=== PATIENT | female | born 1935 | race Caucasian/White ===

== ENCOUNTER 2017-12-03 10:53 | Emergency (ER) | payer MEDICARE, OTHER ==
[2017-12-03 11:46] LABS: #Eosinphils 0.1 thou/uL (0.0-0.7); #Lymphocytes 1.8 thou/uL (1.20-3.40); #Monocytes 0.6 thou/uL (0.11-0.59); #Neutrophils 3.5 thou/uL (1.40-6.50); %Basophils 0.6 % (0.0-1.0); %Eosinophils 1.3 % (0.0-10.0); %Lymphocytes 30.9 % (21.0-51.0); %Monocytes 9.3 % (0.0-10.0); Hemoglobin 12.9 g/dL (12.0-16.0); Mean Corpuscular HGB CONC 33.8 g/dL (32.0-36.0); Mean Corpuscular Hemoglobin 32.7 pg (27.0-31.0); Mean Corpuscular Volume 96.7 fL (78.0-98.0); Mean Platelet Volume 6.7 fL (7.4-10.4); Platelet Count 190 thou/uL (130-400); RBC Distribution Width 12.6 % (11.5-14.5); Red Blood Cell (RBC) Count 3.93 mill/uL (4.20-5.40)
[2017-12-03 11:53] LABS: INR-International Normal Ratio 2.7; PTT 46.1 SEC (22.9-36.1); Prothrombin Time 28.7 SEC (12.0-14.7)
[2017-12-03 12:07] LABS: ALT (SGPT) 9 U/L (8-55); AST (SGOT) 16 U/L (5-34); Alkaline Phosphatase 70 U/L (40-150); Anion Gap 14 mmol/L (10-20); BUN (Urea Nitrogen) 21 mg/dL (9.8-20.1); Bilirubin, Total 0.6 mg/dL (0.2-1.2); Calc. Creatinine Clearance 0 mL/min (70-130); Calcium 9.6 mg/dL (7.8-10.44); Carbon Dioxide 25 mmol/L (23-31); Chloride 104 mmol/L (98-107); Estimated GFR-MDRD 45; Globulin 3.3 g/dL (2.4-3.5); Glucose 92 mg/dL (83-110); Potassium 4.7 mmol/L (3.5-5.1); Protein, Total 7.3 g/dL (6.0-8.3); Sodium 138 mmol/L (136-145)
[2017-12-03] MEDS ORDERED: Acetaminophen 500 MG TAB ONE (12:43)
--- NOTE | 2017-12-03 12:45 | CT ---
CT BRAIN WITHOUT CONTRAST: HISTORY: Headache. FINDINGS: Comparison is made with the exam of 04/16/15. Changes of cortical atrophy and chronic small-vessel ischemic disease are again seen. The ventricula r size is appropriate and the basilar cisterns are patent. No evidence of acute infarct, hemorrhage, midline shift, or abnormal extraaxial fluid collection seen. The bony calvarium is intact. The vis ualized paranasal sinuses and mastoid air cells are well aerated. IMPRESSION: No CT evidence of acute intracranial process. POS: [facility]
[2017-12-03 13:59] LABS: Bilirubin Small (Negative); Blood, Urine Large (Negative); Clarity Hazy (Clear); Glucose, Urine (Dipstick) Negative (Negative); Leukocyte Negative (Negative); Nitrite Negative (Negative); Protein, Urine (Dipstick) Trace mg/dL (Neg-Trace); Urobilinogen 0.2 mg/dL (0.2-1.0); pH, Urine 5.5 (5.0-9.0)
[2017-12-03 14:01] LABS: Specific Gravity, Urine 1.026 (1.002-1.036)
[2017-12-03 14:02] LABS: Other Microscopic Description Less than 2 mL rec'd
[2017-12-03 14:03] LABS: Bacteria/HPF None Seen HPF (None Seen); Hyaline Casts/LPF NONE SEEN LPF (0-3 Hyaline); RBC/HPF 21-50 HPF (0-3); Squamous Epithelial 0-3 HPF (0-3); Transitional Epithelial 0-3 HPF (0-3); WBC/HPF 0-3 HPF (0-3)
== END 2017-12-03 14:34 | disposition home or self-care (01) ==
LOC: ERS 10:53
DX: K08.89 Other specified disorders of teeth and supporting structures (principal); I10 Essential (primary) hypertension; I49.9 Cardiac arrhythmia, unspecified; I48.91 Unspecified atrial fibrillation; Z79.82 Long term (current) use of aspirin; Z79.899 Other long term (current) drug therapy
CPT/HCPCS: 36415; 51701; 70450; 80053; 81003; 81015; 85025; 85610; 85730; A4353

== ENCOUNTER 2018-04-15 18:31 | Emergency (ER) | payer MEDICARE ==
[2018-04-15 19:01] LABS: #Eosinphils 0.2 thou/uL (0.0-0.7); #Lymphocytes 2.3 thou/uL (1.20-3.40); #Monocytes 0.6 thou/uL (0.11-0.59); #Neutrophils 2.6 thou/uL (1.40-6.50); %Basophils 0.7 % (0.0-1.0); %Eosinophils 2.9 % (0.0-10.0); %Lymphocytes 40.2 % (21.0-51.0); %Monocytes 9.9 % (0.0-10.0); %Neutrophils 46.3 % (42.0-75.0); Hemoglobin 12.4 g/dL (12.0-16.0); Mean Corpuscular HGB CONC 33.9 g/dL (32.0-36.0); Mean Corpuscular Hemoglobin 32.3 pg (27.0-31.0); Mean Corpuscular Volume 95.4 fL (78.0-98.0); Mean Platelet Volume 8.4 fL (7.4-10.4); Platelet Count 180 thou/uL (130-400); RBC Distribution Width 12.5 % (11.5-14.5); Red Blood Cell (RBC) Count 3.85 mill/uL (4.20-5.40); White Blood Cell (WBC) Count 5.6 thou/uL (4.8-10.8)
[2018-04-15 19:21] LABS: ALT (SGPT) 11 U/L (8-55); AST (SGOT) 26 U/L (5-34); Albumin 3.5 g/dL (3.4-4.8); Alkaline Phosphatase 70 U/L (40-150); Anion Gap 16 mmol/L (10-20); BUN (Urea Nitrogen) 27 mg/dL (9.8-20.1); Bilirubin, Total 0.3 mg/dL (0.2-1.2); CK (CPK) 48 U/L (29-168); Calc. Creatinine Clearance 0 mL/min (70-130); Calcium 8.9 mg/dL (7.8-10.44); Carbon Dioxide 19 mmol/L (23-31); Chloride 107 mmol/L (98-107); Estimated GFR-MDRD 44; Globulin 3.8 g/dL (2.4-3.5); Glucose 102 mg/dL (83-110); Potassium 5.8 mmol/L (3.5-5.1); Protein, Total 7.3 g/dL (6.0-8.3); Sodium 136 mmol/L (136-145)
[2018-04-15] MEDS ORDERED: Meclizine HCl 25 MG TAB ONE (20:00)
--- NOTE | 2018-04-15 20:08 | CT ---
CT HEAD NONCONTRAST: INDICATIONS: Dizziness. COMPARISON: 12/03/2017 FINDINGS: There is no evidence of ventriculomegaly, mass effect, midline shift, or acute intracranial hemorrhag e. Head CT is stable to 12/03/2017 exam. There is evidence of mild chronic ischemic disease of the cerebral white matter. No acute fluid level of the visualized paranasal sinuses. IMPRESSION: 1. No acute intracranial hemorrhage or mass effect. 2. Mild chronic ischemic disease. POS: [facility]
[2018-04-15 21:11] LABS: Bilirubin Negative (Negative); Blood, Urine Negative (Negative); Clarity CLEAR (Clear); Glucose, Urine (Dipstick) Negative (Negative); Leukocyte Small (Negative); Nitrite Negative (Negative); Protein, Urine (Dipstick) Negative (Neg-Trace); Specific Gravity, Urine 1.014 (1.002-1.036); Urobilinogen 0.2 mg/dL (0.2-1.0)
[2018-04-15 21:14] LABS: Bacteria/HPF None Seen HPF (None Seen); Hyaline Casts/LPF 0-3 HYALINE CAST LPF (0-3 Hyaline); Pathc Cast-AUWi Flag 0.58 (0-2.49); RBC/HPF 0-3 HPF (0-3); Squamous Epithelial 0-3 HPF (0-3); WBC/HPF 0-3 HPF (0-3)
[2018-04-15 22:05] LABS: Anion Gap 12 mmol/L (10-20); BUN (Urea Nitrogen) 24 mg/dL (9.8-20.1); Calc. Creatinine Clearance 0 mL/min (70-130); Calcium 8.7 mg/dL (7.8-10.44); Carbon Dioxide 23 mmol/L (23-31); Chloride 108 mmol/L (98-107); Estimated GFR-MDRD 53; Glucose 89 mg/dL (83-110); Potassium 4.6 mmol/L (3.5-5.1); Sodium 138 mmol/L (136-145)
== END 2018-04-15 22:57 | disposition home or self-care (01) ==
LOC: ERS 18:31
DX: E86.0 Dehydration (principal); Z79.82 Long term (current) use of aspirin; Z79.899 Other long term (current) drug therapy; I10 Essential (primary) hypertension; I48.91 Unspecified atrial fibrillation
CPT/HCPCS: 36415; 70450; 80053; 81003; 81015; 82550; 84484; 85025; 87086; 93005; 96360

== ENCOUNTER 2019-04-03 04:36 | Emergency (ER) | payer MEDICARE ==
[2019-04-03 05:50] LABS: #Eosinphils 0.2 thou/uL (0.0-0.7); #Lymphocytes 1.8 thou/uL (1.20-3.40); #Monocytes 0.7 thou/uL (0.11-0.59); #Neutrophils 4.6 thou/uL (1.40-6.50); %Basophils 0.3 % (0.0-1.0); %Eosinophils 2.2 % (0.0-10.0); %Lymphocytes 24.5 % (21.0-51.0); Hemoglobin 12.2 g/dL (12.0-16.0); Mean Corpuscular HGB CONC 33.5 g/dL (32.0-36.0); Mean Corpuscular Hemoglobin 31.9 pg (27.0-31.0); Mean Corpuscular Volume 95.2 fL (78.0-98.0); Mean Platelet Volume 7.6 fL (7.4-10.4); Platelet Count 181 thou/uL (130-400); RBC Distribution Width 12.4 % (11.5-14.5); Red Blood Cell (RBC) Count 3.83 mill/uL (4.20-5.40); White Blood Cell (WBC) Count 7.2 thou/uL (4.8-10.8)
[2019-04-03 06:08] LABS: Bilirubin Negative (Negative); Blood, Urine Negative (Negative); Clarity Clear (Clear); Glucose, Urine (Dipstick) Normal (Negative); Leukocyte 250 Leu/uL (Negative); Nitrite Negative (Negative); Protein, Urine (Dipstick) Negative (Neg-Trace); RBC/HPF 0-3 HPF (0-3); Squamous Epithelial 0-3 HPF (0-3); Urobilinogen Normal mg/dL (Less than 2)
[2019-04-03 06:13] LABS: ALT (SGPT) 9 U/L (8-55); AST (SGOT) 15 U/L (5-34); Albumin 3.8 g/dL (3.4-4.8); Alkaline Phosphatase 76 U/L (40-110); Anion Gap 13 mmol/L (10-20); BUN (Urea Nitrogen) 19 mg/dL (9.8-20.1); Bilirubin, Total 0.5 mg/dL (0.2-1.2); Calc. Creatinine Clearance 0 mL/min (70-130); Calcium 9.1 mg/dL (7.8-10.44); Carbon Dioxide 22 mmol/L (23-31); Chloride 107 mmol/L (98-107); Estimated GFR-MDRD 60; Globulin 3.1 g/dL (2.4-3.5); Glucose 112 mg/dL (83-110); Potassium 4.2 mmol/L (3.5-5.1); Protein, Total 6.9 g/dL (6.0-8.3); Sodium 138 mmol/L (136-145)
[2019-04-03 06:18] LABS: Bacteria/HPF 1+ HPF (None Seen)
--- NOTE | 2019-04-03 08:53 | RAD ---
PORTABLE SUPINE CHEST: Date: 04/03/19 HISTORY: Syncope. COMPARISON: 11/16/12. FINDINGS: Heart size is enlarged. A MediPort catheter is present. There are atherosclerotic changes of the aort a. Lungs show chronic change. Surgical clips are noted in the right axilla. IMPRESSION: Cardiomegaly with chronic lung change. POS: [facility]
== END 2019-04-03 07:18 | disposition home or self-care (01) ==
LOC: ERS 04:36
DX: N39.0 Urinary tract infection, site not specified (principal); I10 Essential (primary) hypertension; I48.91 Unspecified atrial fibrillation; Z79.82 Long term (current) use of aspirin; Z79.899 Other long term (current) drug therapy; Z79.01 Long term (current) use of anticoagulants
CPT/HCPCS: 36415; 71045; 80053; 81003; 81015; 85025

== ENCOUNTER 2019-09-26 14:07 | Outpatient (CLI) | payer MEDICARE ==
--- NOTE | 2019-09-26 14:35 | MMO ---
Left Breast MAMMO Unilat Diag DDI LT+MATY. CLINICAL HISTORY: Patient is 83 years old and is seen for diagnostic exam. The patient has no family history of breast cancer. The patient has a history of right Mastectomy in 2013 - malignant. VIEWS: The views performed were: left craniocaudal with tomosynthesis; left mediolateral oblique with tomosynthesis; and left mediolateral with tomosynthesis. FILMS COMPARED: The present examination has been compared to prior imaging studies performed at [facility] on 12/16/2008, 02/03/2010 and 07/23/2015. This study has been interpreted with the assistance of computer-aided detection. MAMMOGRAM FINDINGS: There are scattered fibroglandular densities. There are stable benign appearing calcifications seen in the left breast. powder density on skin There are no suspicious masses, suspicious calcifications, or new areas of architectural distortion. IMPRESSION: THERE IS NO MAMMOGRAPHIC EVIDENCE OF MALIGNANCY. A ROUTINE FOLLOW-UP MAMMOGRAM IN 1 YEAR IS RECOMMENDED. THE RESULTS OF THIS EXAM WERE SENT TO THE PATIENT. ACR BI-RADS Category 2 - Benign finding MAMMOGRAPHY NOTE: 1. A negative mammogram report should not delay a biopsy if a dominant of clinically suspicious mass is present. 2. Approximately 10% to 15% of breast cancers are not detected by mammography. 3. Adenosis and dense breasts may obscure an underlying neoplasm. Reported by: KAR ANDRADE MD Electonically Signed: [id number]
== END 2019-09-26 14:08 | disposition home or self-care (01) ==
LOC: BICMAMMO 14:07
PROVIDERS: ATTEND Internal Medicine
DX: R92.8 Other abnormal and inconclusive findings on diagnostic imaging of breast (principal)
CPT/HCPCS: 77065; G0279

== ENCOUNTER 2019-11-08 14:02 | Inpatient (IN) | payer MEDICARE, OTHER ==
[~2019-11-08 14:02] MED LIST: Iopamidol-370 76% 500 ML 1 ML ONE
[2019-11-08 14:23] LABS: #Lymphocytes 1.2 thou/uL (1.20-3.40); #Monocytes 0.3 thou/uL (0.11-0.59); #Neutrophils 5.4 thou/uL (1.40-6.50); %Basophils 0.5 % (0.0-1.0); %Eosinophils 0.4 % (0.0-10.0); %Lymphocytes 17.4 % (21.0-51.0); %Monocytes 4.2 % (0.0-10.0); %Neutrophils 77.4 % (42.0-75.0); Hemoglobin 14.2 g/dL (12.0-16.0); Mean Corpuscular HGB CONC 32.9 g/dL (32.0-36.0); Mean Corpuscular Hemoglobin 31.8 pg (27.0-31.0); Mean Corpuscular Volume 96.4 fL (78.0-98.0); Mean Platelet Volume 8.4 fL (7.4-10.4); Platelet Count 194 thou/uL (130-400); RBC Distribution Width 12.5 % (11.5-14.5); Red Blood Cell (RBC) Count 4.48 mill/uL (4.20-5.40)
[2019-11-08 14:55] LABS: Albumin 4.2 g/dL (3.4-4.8)
[2019-11-08] MEDS ORDERED: Fentanyl 100 MCG/2 ML VIAL ONE (14:55)
[2019-11-08] MEDS ORDERED: Cefepime 2 GM VIAL ONE (14:55)
[2019-11-08 14:56] LABS: Chloride 107 mmol/L (98-107); Potassium 5.5 mmol/L (3.5-5.1); Sodium 138 mmol/L (136-145)
[2019-11-08 14:57] LABS: Calcium 9.1 mg/dL (7.8-10.44)
[2019-11-08 14:58] LABS: Globulin 3.3 g/dL (2.4-3.5); Glucose 145 mg/dL (83-110); Protein, Total 7.5 g/dL (6.0-8.3)
--- NOTE | 2019-11-08 14:58 | CT ---
CT Brain WO Con HISTORY: 84-year-old female with left-sided weakness and facial droop COMPARISON: 05/11/2019 FINDINGS: There is loss of bridges matter differentiation and decreased density in the right posterior temporal-pa rietal occipital region suspicious for acute infarction. No hemorrhage, midline shift or abnormal extra axial fluid collections is seen. The ventricular size is appropriate and the basilar cisterns p atent. The bony calvarium is intact. IMPRESSION: Findings are suspicious for acute right-sided infarction. Discussed over the telephone with ER physician Dr. Ramon at 2:54 PM.
[2019-11-08 14:59] LABS: Anion Gap 18 mmol/L (10-20); Carbon Dioxide 19 mmol/L (23-31)
[2019-11-08 15:00] LABS: Bilirubin, Total 0.5 mg/dL (0.2-1.2)
[2019-11-08 15:01] LABS: Alkaline Phosphatase 73 U/L (40-110); Calc. Creatinine Clearance 0 mL/min (70-130); Estimated GFR-MDRD 59
[2019-11-08 15:02] LABS: BUN (Urea Nitrogen) 16 mg/dL (9.8-20.1)
[2019-11-08 15:03] LABS: AST (SGOT) 23 U/L (5-34)
[2019-11-08 15:04] LABS: ALT (SGPT) 9 U/L (8-55)
--- NOTE | 2019-11-08 15:18 | RAD ---
XR Chest 1 View Portable HISTORY: Altered mental status. Left-sided weakness and facial droop right arm edema from meniscectom y COMPARISON: 04/03/2019 FINDINGS: The heart is enlarged. The aorta is tortuous. There is pulmonary vascular congestion. Left- sided Port-A-Cath remains in place. There are postop changes in the right chest. No lobar consolidation, pneumothoraces or large effusions are seen.
--- NOTE | 2019-11-08 15:19 | RAD ---
XR Shoulder Rt 3 View STANDARD HISTORY: Right, edema from mastectomy FINDINGS: No fracture or dislocation is identified. There are degenerative changes in the glenohumeral and AC j oints.
[2019-11-08 15:22] LABS: Bilirubin Negative (Negative); Blood, Urine Negative (Negative); Clarity Clear (Clear); Glucose, Urine (Dipstick) Normal (Negative); Ketone, Urine 20 mg/dL (Negative); Leukocyte Negative Leu/uL (Negative); Nitrite Negative (Negative); Protein, Urine (Dipstick) 10 mg/dL (Neg-Trace); Specific Gravity, Urine 1.018 (1.002-1.036); Urobilinogen Normal mg/dL (Less than 2); pH, Urine 7.5 (5.0-9.0)
[2019-11-08] MEDS ORDERED: Vancomycin HCl 1.25 GM in Sodium Chloride 0.9% 250 ML 250 ML IVPB SCH (15:30)
--- NOTE | 2019-11-08 15:43 | CT ---
CT CERVICAL SPINE WITHOUT CONTRAST: Date: 11/08/2019 INDICATION: 84-year-old female with history of left-sided weakness and facial droop. COMPARISON: Prior exam dated 05/11/2019. FINDINGS: There is stable ankylosis of the facet complexes on the left at C4-5. There is advanced multilevel di sc degenerative facet osteoarthritic change. No acute fracture or subluxation is evident. Prevertebra l soft tissues are normal appearing. Craniocervical junction is normal appearing. There is mild pleur al parenchymal scarring involving both lung apices. IMPRESSION: 1. No acute osseous abnormality. 2. Stable moderate to severe cervical spondylosis. POS: [facility]
--- NOTE | 2019-11-08 15:46 | CT ---
CTA Angio Head W WO Con History: Altered mental status Comparison: CT brain same day Findings: Extensive scarring of the lung apices. Transverse aorta is unremarkable. High-grade bilateral facet arthropathy of the cervical spine. No fracture. Vessels: The vertebral arteries are codominant. Moderate atherosclerotic plaque both carotid bulbs an d proximal internal carotid arteries. No hemodynamically significant stenosis of the internal carotid arteries per NASCET criteria. Right M2 lesion of distal right ICA involving portion of the FERMÍN for a length of 3 mm and the near entire right M1 segment. Partial reconstitution within M2, M3 and M4. Moderate narrowing left and right posterior communicating arteries. Both posterior cerebral arteries are patent. Impression: Right carotid terminus T lesion and extension into the right FERMÍN for 3 to 4 mm and is norman rly complete occlusion of the right M1 segment with M2, M3 and M4 partial collateralization. Dr. Ramon notified of findings via telephone at 3:43 PM Transcribed Date/Time: 11/08/2019 4:24 PM
[2019-11-08] MEDS ORDERED: Aspirin 300 MG Suppository ONE (15:49)
[2019-11-08] MEDS ORDERED: Labetalol HCl 100 MG/20 ML VIAL ONE (15:49)
[2019-11-08] MEDS ORDERED: Ondansetron PF 4 MG/2 ML Vial IVP PRN (16:37)
[2019-11-08] MEDS ORDERED: Senokot S 8.6-50 MG TAB PO PRN (16:37)
[2019-11-08] MEDS ORDERED: Acetaminophen 325 MG TAB PO PRN (16:37)
[2019-11-08] MEDS ORDERED: hydrALAZINE 20 MG/ML VIAL SLOW IVP PRN (16:42)
[2019-11-08 16:55] LABS: INR-International Normal Ratio 1.2; Prothrombin Time 14.9 sec (12.0-14.7)
[2019-11-08 17:06] LABS: Cardiac Risk 4.5 (Less than 4.5)
[2019-11-08 17:35] LABS: CKMB 2.6 ng/mL (0-6.6)
--- NOTE | 2019-11-08 19:07 | HP ---
CHIEF COMPLAINT: Altered mentation and hemiparesis. HISTORY OF PRESENT ILLNESS: An 84-year-old female with history of atrial fibrillation, hypertension, hyperlipidemia, coronary artery disease, found on the floor by her son this morning. It appears that she had a fall around 08:00 p.m. and then later this morning, the son found her to be on the floor. EMS brought her for altered mentation. She also had left-sided upper and lower extremity weakness. She was noted to have left facial drooping. During the ER evaluation, she was altered. Other than saying being cold, she is not able to say much and she is not following commands. There is a warm Kylee Hugger on her. I talked to the ER nurse. NIH score was not able to be obtained because technically she is not following any commands. Other than complaining of headache and being cold, the patient received a dose of fentanyl. The patient does have a history of breast cancer with right-sided mastectomy causing significant lymphedema. The patient has chronic pain to the right upper extremity. She lives at home. She has no risk for COVID exposure. No recent illness. She has not been associated with anybody with COVID positive. However, EMS noted that she had a fever and tachypnea, otherwise maintaining the airway. REVIEW OF SYSTEMS: Not able to be obtained due to the patient's mentation. ALLERGIES: SHE HAS NO KNOWN DRUG ALLERGY. MEDICATIONS: 1. Propafenone 150 mg 3 times a day. 2. Potassium chloride 10 mEq daily. 3. Skelaxin 800 mg 3 times a day p.r.n. 4. [place] 1 tablet q.4 hours. 5. Lasix 40 mg daily. 6. Atenolol 50 mg daily. 7. Aspirin 81 mg daily and this has not updated yet. PAST MEDICAL HISTORY: 1. Atrial fibrillation. 2. Breast cancer, right mastectomy and complicated with right-sided lymphedema, status post lumpectomy. 3. Osteoporosis. PHYSICAL EXAMINATION: VITAL SIGNS: Her blood pressure is 168/92, pulse 75, temperature is 97.3, saturating 98% on room air. GENERAL: The patient is not oriented. She is moving her extremities only on the right side. Not following any commands. CARDIOVASCULAR: She has irregular rhythm, regular rate. LUNGS: Clear. ABDOMEN: Soft, nontender, nondistended. Good bowel sounds. EXTREMITIES: Did not appreciate any pitting edema. NEUROLOGIC: Complete neuro exam not performed. LABORATORY DATA: Her CBC in the normal range. Chemistry panel; potassium 5.5, creatinine 0.91, blood glucose 145. Troponin is 0.057. LDL is 147. TSH in the normal range. Sodium 138, creatinine 0.91. Her CT of cervical spine is negative for any fractures. CT of head is negative for acute abnormalities. CT angiogram showed T lesions in the right RCA, complete occlusion of the M1 segment. IMPRESSION AND PLAN: This is an 84-year-old female with a history of atrial fibrillation, hypertension, hyperlipidemia, presenting with; 1. Left hemiparesis, facial droop, right upper extremity lymphedema, and chronic right-sided weakness secondary to complications with right lumpectomy with remote breast cancer. The patient will be admitted for ischemic stroke workup. We will get MRI of the brain, 2D echo. PT, OT, Speech therapy consult placed. We will start aspirin and statin after speech therapy evaluation completed. Meanwhile aspirin UT. Home medications have to be updated before starting them. 2. Atrial fibrillation. Currently, her rate is controlled. It does not appear that she is on any anticoagulant for her atrial fibrillation, however home meds are not done. We will start DVT prophylaxis with anticoagulation after MRI report reviewed. 3. Hypertension. Permissive hypertension for the next 48 hours and correct that with hydralazine p.r.n. only if systolic blood pressure above 180. We will resume her home medications once that has been verified. 4. Full code. Job ID: [id number] MTDD
[2019-11-08 20:29] VITALS: BMI 30.7
[2019-11-08 21:10] LABS: Troponin I 0.119 ng/mL (< 0.028)
[2019-11-08] MEDS: AMOXicillin 250 MG CAP PO SCH (22:23)
[2019-11-08] MEDS: Atorvastatin Calcium 40 MG TAB PO SCH (22:23)
[2019-11-08 23:17] LABS: Troponin I 0.146 ng/mL (< 0.028)
[2019-11-09 05:01] LABS: #Eosinphils 0.1 thou/uL (0.0-0.7); #Lymphocytes 1.7 thou/uL (1.20-3.40); #Monocytes 0.7 thou/uL (0.11-0.59); #Neutrophils 7.6 thou/uL (1.40-6.50); %Basophils 0.3 % (0.0-1.0); %Eosinophils 0.6 % (0.0-10.0); %Lymphocytes 17.2 % (21.0-51.0); %Monocytes 6.6 % (0.0-10.0); %Neutrophils 75.4 % (42.0-75.0); Hemoglobin 13.4 g/dL (12.0-16.0); Mean Corpuscular Hemoglobin 29.8 pg (27.0-31.0); Mean Corpuscular Volume 96.2 fL (78.0-98.0); Mean Platelet Volume 7.9 fL (7.4-10.4); Platelet Count 207 thou/uL (130-400); RBC Distribution Width 12.3 % (11.5-14.5)
[2019-11-09 05:02] LABS: Hemoglobin A1c 5.8 % (4.0-6.0)
[2019-11-09 05:16] LABS: Anion Gap 15 mmol/L (10-20); BUN (Urea Nitrogen) 12 mg/dL (9.8-20.1); Calc. Creatinine Clearance 72 mL/min (70-130); Calcium 9.4 mg/dL (7.8-10.44); Carbon Dioxide 20 mmol/L (23-31); Cardiac Risk 4.2 (Less than 4.5); Chloride 106 mmol/L (98-107); Cholesterol 215 mg/dl (< 200 Desired); Estimated GFR-MDRD 67; Glucose 127 mg/dL (83-110); HDL Cholesterol 51 mg/dL (>60 Neg Risk); LDL Cholesterol, Calculated 146 mg/dL; Potassium 4.3 mmol/L (3.5-5.1); Sodium 137 mmol/L (136-145); Triglycerides 89 mg/dL (Less than 150)
[2019-11-09] MEDS ORDERED: Aspirin 81 mg Enteric Coated Tablet PO SCH (09:00)
[2019-11-09] MEDS ORDERED: Prevnar 13-Val Conj/PF 0.5 ML SYRINGE IM ONE (09:00)
[2019-11-09] MEDS: Labetalol HCl 100 MG/20 ML VIAL SLOW IVP PRN ×3 (09:26→20:51)
[2019-11-09] MEDS: Aspirin 300 MG Suppository PR SCH (09:29)
--- NOTE | 2019-11-09 10:32 | MRI ---
MRI Brain W WO Con History: CVA. Unresponsive Comparison: CTA prior day. Findings: Large right MCA territory infarction involving majority of the right inferior temporal lobe as well as posterior right parietal lobe. There is also involvement of the right caudate head and body as well as the putamen and globus pallidus and insula. Anterior right parietal and frontal lobes have minimal involvement. Relative sparing right FERMÍN territory. No left-sided infarction is appreciated. There are punctate foci of susceptibility along the left posterior parietal sulci as well as right po sterior parietal sulcus. No large volume hemorrhage. Postcontrast sequences a limited due to motion. No abnormal enhancing mass is appreciated. Mild cortical and subcortical edema with minimal effacement of the right lateral ventricle. Adequate contrast enhancement dural venous sinuses. Impression: 1. Large right MCA territory infarction as described. 2. Punctate small foci of susceptibility within the right and left posterior parietal sulci without l arge volume hemorrhage. 3. Low-grade effacement right lateral ventricle. No hydrocephalus or evidence of obstruction. 4. Although somewhat limited due to motion, no abnormal enhancing parenchymal mass.
--- NOTE | 2019-11-09 11:08 | PDOC.HOSPP ---
- Subjective Encounter Date: 11/09/19 Encounter Time: 10:10 Subjective: Patient still not following any commands. She is a phasic. Her temp is this morning 99.2. She has more weakness on the left than the left leg. She is able to move her right leg much more so than the left leg. She will be going for MRI this morning. - Objective Vital Signs & Weight: Vital Signs (12 hours) Temp Pulse Resp BP Pulse Ox 11/09/19 08:00 99.2 F 104 H 18 186/120 H 97 11/09/19 03:56 98.4 F 121 H 20 121/104 H 97 11/09/19 00:00 97.0 F L 20 170/138 H 98 Weight Weight 190 lb 3.2 oz Result Diagrams: 11/09/19 04:34 11/09/19 04:34 Additional Labs: Accuchecks 11/08/19 14:15 POC Glucose 139 H Hospitalist ROS - Medication Medications: Active Medications Generic Name Dose Route Start Last Admin Trade Name Freq PRN Reason Stop Dose Admin Amoxicillin 500 mg 11/08/19 21:00 11/08/19 22:23 Amoxil PO 11/16/19 21:01 Not Given TID MARIKA Aspirin 300 mg 11/09/19 09:00 11/09/19 09:29 Aspirin [place] 300 mg DAILY MARIKA Administration Atorvastatin Calcium 40 mg 11/08/19 21:00 11/08/19 22:23 Lipitor PO Not Given HS MARIKA Labetalol HCl 10 mg 11/09/19 08:42 11/09/19 09:26 Normodyne SLOW IVP 2 ml Q4H PRN Administration Blood Pressure - Exam General Appearance: ill appearing Eye: PERRL ENT: normocephalic atraumatic Neck: supple Heart: RRR Respiratory: normal chest expansion Skin - other findings: No pressure ulcers noted. Neurological: hemiplegia, speech deficit Psychiatric: not oriented Hosp A/P - Plan Left hemiparesis Chronic right upper extremity lymphedema secondary to a right lumpectomy for breast cancer CT angiogram showed 3 lesions in the right RCA complete occlusion of the M1 segment. -Aspirin per rectum -Follow-up with MRI and 2D echo. -Therapist likely will see her today. Atrial fibrillation and metric updated it appears that she is on Xarelto for her A. fib. -We will start that after MRI report reviewed. -Rate not controlled will correct with labetalol PRN IV. Hypertension -allow permissive hypertension and correct if systolic blood pressure is above 160. -Currently she is also tachycardic so we will provide a labetalol as needed to keep the heart rate below 90. Recent dental work -She was given prescription amoxicillin 500 for 10 days. -When she can start her p.o. intake will put her on amoxicillin to continue. -Until then we can continue with ceftriaxone meanwhile to keep the infection under check. -Please discontinue ceftriaxone once her p.o. intake starts Switch aspirin per rectum to p.o. when able.
[2019-11-09] MEDS: cefTRIAXone\\ROCEPHIN 1 GM in Sodium Chloride 0.9% 100 ML IVPB SCH (11:43)
[2019-11-09] MEDS ORDERED: Magnevist 469MG/ML 20 ML VIAL ONE (11:46)
[2019-11-09] MEDS: AMOXicillin 250 MG CAP PO SCH ×3 (11:46→19:42)
[2019-11-09] MEDS: Metoprolol Tartrate 5 MG/5 ML VIAL IVP SCH ×3 (11:49→23:33)
--- NOTE | 2019-11-09 14:32 | CON ---
DATE OF CONSULTATION: 11/09/2019 CONSULTING PHYSICIAN: Hospitalist Services. IMPRESSION: 1. Right middle cerebral artery stroke. 2. History of atrial fibrillation. 3. Hypertension. PLAN: 1. Continue aspirin and a statin. 2. Monitor for recurrent atrial fibrillation and consider anticoagulation if it is intermittent. 3. Echocardiogram. 4. Probable need for PEG tube placement. HISTORY OF PRESENT ILLNESS: Ms. Berkowitz is an 84-year-old woman who was brought in with a change in status. She was noted to have left-sided weakness. Initial CT scan of the brain did not show any evidence of hemorrhage. She had a followup MRI of the brain, which showed a large right MCA stroke. She has been admitted to the Stroke Unit. She has no COVID risk exposures. IMAGING STUDIES: CT angiogram showed a right complete occlusion of the M1 segment. LABORATORY DATA: Laboratory studies were unremarkable. PAST HISTORY: Breast cancer. MEDICATION: Medication list was reviewed. ALLERGIES: NONE REPORTED. SOCIAL HISTORY: No tobacco or alcohol use reported. REVIEW OF SYSTEMS: Cannot be obtained due to her current mental state. PHYSICAL EXAMINATION: GENERAL: She is somewhat overweight elderly lady, lying in bed, in no acute distress. VITAL SIGNS: Blood pressure 186/120, pulse 104, respirations 18, and temperature 99.2. HEENT: Pupils are equal. Eyes are conjugate. Conjunctivae are clear. Oropharynx is clear. Cranium; normocephalic and atraumatic. NECK: Supple. No lymphadenopathy. ABDOMEN: Soft and nontender. EXTREMITIES: No cyanosis or edema. SKIN: Clear. NEUROLOGIC: No abnormal movements were seen. She would not open her eyes to verbal stimulation. She would not maintain eye opening after raising her eyelids manually. There was no significant facial asymmetry. She had diminished movement of the left arm and leg. Plantar response was upgoing on the left and downgoing on the right. Sensations seem to be intact. SUMMARY: This is an unfortunate elderly lady with large right MCA stroke, possibly secondary to a cardioembolic event. She is currently on aspirin and a statin. Consider anticoagulation once her status has been determined as far as her feeding capacity. Job ID: [id number]
[2019-11-09 15:32] LABS: SARS-CoV-2 MS2 Positive; SARS-CoV-2 N Gene Negative; SARS-CoV-2 S Gene Negative; SARS-CoV-2 by NAA Not Detected (NotDetected); SARS-CoV-2 orf1ab Negative
[2019-11-09] MEDS ORDERED: Labetalol HCl 100 MG/20 ML VIAL SLOW IVP SCH (17:00)
[2019-11-09] MEDS: Atorvastatin Calcium 40 MG TAB PO SCH (19:42)
[2019-11-10] MEDS: Sodium Chloride 0.9% 1,000 ML IV SCH (00:05)
[2019-11-10] MEDS: Labetalol HCl 100 MG/20 ML VIAL SLOW IVP PRN (00:56)
[2019-11-10] MEDS: Metoprolol Tartrate 5 MG/5 ML VIAL IVP SCH ×4 (06:09→23:52)
[2019-11-10] MEDS: Aspirin 300 MG Suppository PR SCH (08:56)
[2019-11-10] MEDS: AMOXicillin 250 MG CAP PO SCH ×3 (08:57→21:04)
[2019-11-10] MEDS: cefTRIAXone\\ROCEPHIN 1 GM in Sodium Chloride 0.9% 100 ML IVPB SCH (10:54)
--- NOTE | 2019-11-10 12:26 | PDOC.HOSPP ---
- Subjective Encounter Date: 11/10/19 Encounter Time: 10:15 Subjective: obtunded, unable to wake her she barely opens her right eye partially and goes back to snoring - Objective Vital Signs & Weight: Vital Signs (12 hours) Temp Pulse Resp BP BP Pulse Ox 11/10/19 11:14 77 140/83 11/10/19 11:09 98.9 F 83 15 151/90 H 98 11/10/19 08:53 96 11/10/19 07:30 99.3 F 84 18 146/110 H 96 11/10/19 06:10 82 133/82 11/10/19 03:44 99.4 F 87 17 129/76 96 11/10/19 00:56 84 174/103 H 11/10/19 00:53 174/103 H Weight Admit Weight 190 lb Weight 190 lb 3.2 oz I&O: 11/09/19 11/10/19 11/11/19 06:59 06:59 06:59 Intake Total 156 Output Total 225 Balance -69 Result Diagrams: 11/09/19 04:34 11/09/19 04:34 Hospitalist ROS - Medication Medications: Active Medications Generic Name Dose Route Start Last Admin Trade Name Freq PRN Reason Stop Dose Admin Amoxicillin 500 mg 11/08/19 21:00 11/10/19 08:57 Amoxil PO 11/16/19 21:01 Not Given TID MARIKA Aspirin 300 mg 11/09/19 09:00 11/10/19 08:56 Aspirin MD 300 mg DAILY MARIKA Administration Atorvastatin Calcium 40 mg 11/08/19 21:00 11/09/19 19:42 Lipitor PO Not Given HS MARIKA Ceftriaxone Sodium 1 gm/ 100 mls @ 200 mls/hr 11/09/19 11:15 11/10/19 10:54 Sodium Chloride IVPB 100 mls Q24HR MARIKA Administration Sodium Chloride 1,000 mls @ 25 mls/hr 11/09/19 23:45 11/10/19 00:05 Normal Saline 0.9% IV 11/11/19 15:44 1,000 mls .Q24H MARIKA Administration Labetalol HCl 10 mg 11/09/19 08:42 11/10/19 00:56 Normodyne SLOW IVP 2 ml Q4H PRN Administration Blood Pressure Metoprolol Tartrate 5 mg 11/09/19 11:45 11/10/19 10:54 Lopressor IVP 11/12/19 11:46 5 mg Q6H MARIKA Administration Sodium Chloride 10 ml 11/08/19 16:37 11/09/19 20:41 Flush - Normal Saline IVF 10 ml PRN PRN Administration Saline Flush - Exam General Appearance: ill appearing Eye: PERRL, anicteric sclera ENT: no oropharyngeal lesions, dry oral mucosa Neck: supple, no JVD Heart: RRR, no murmur Respiratory: no wheezes, no rales Gastrointestinal: soft, non-tender, non-distended, normal bowel sounds Extremities: no cyanosis, no edema Neurological: hemiplegia Neurological - other findings: left Hosp A/P (1) Acute CVA (cerebrovascular accident) Code(s): I63.9 - CEREBRAL INFARCTION, UNSPECIFIED Status: Acute (2) Acute encephalopathy Code(s): G93.40 - ENCEPHALOPATHY, UNSPECIFIED Status: Acute (3) HTN (hypertension) Code(s): I10 - ESSENTIAL (PRIMARY) HYPERTENSION Status: Chronic Qualifiers: Hypertension type: essential hypertension Qualified Code(s): I10 - Essential (primary) hypertension (4) Dysphagia Code(s): R13.10 - DYSPHAGIA, UNSPECIFIED Status: Acute Qualifiers: Dysphagia type: unspecified Qualified Code(s): R13.10 - Dysphagia, unspecified (5) Dyslipidemia Code(s): E78.5 - HYPERLIPIDEMIA, UNSPECIFIED Status: Chronic (6) Paroxysmal a-fib Code(s): I48.0 - PAROXYSMAL ATRIAL FIBRILLATION Status: Chronic - Plan has large right mca infarct with complete occlusion of M1 segment and left hemiplegia is obtunded/encephalopathic due to large cva continue rectal asp, ceftriaxone for now d/w son Mr.James Miller, he will be here around 1 pm, he wants her to be DNAR poor prognosis if she didn't wake up by this evening.
[2019-11-10] MEDS: Atorvastatin Calcium 40 MG TAB PO SCH (21:04)
[2019-11-11] MEDS: Sodium Chloride 0.9% 1,000 ML IV SCH (01:37)
[2019-11-11] MEDS: Labetalol HCl 100 MG/20 ML VIAL SLOW IVP PRN (04:45)
[2019-11-11] MEDS: Metoprolol Tartrate 5 MG/5 ML VIAL IVP SCH ×4 (05:52→23:52)
--- NOTE | 2019-11-11 07:51 | PDOC.HOSPP ---
- Subjective Encounter Date: 11/11/19 Encounter Time: 07:38 Subjective: responds to stimuli - Objective Vital Signs & Weight: Vital Signs (12 hours) Temp Pulse Resp BP Pulse Ox 11/11/19 03:42 99.1 F 84 20 189/87 H 93 L 11/10/19 23:58 99.1 F 101 H 20 93 L 11/10/19 23:55 167/115 H 11/10/19 21:11 137/99 H 11/10/19 21:05 95 11/10/19 19:58 98.8 F 86 20 169/118 H 95 Weight Admit Weight 190 lb Weight 190 lb 3.2 oz I&O: 11/10/19 11/11/19 11/12/19 06:59 06:59 06:59 Intake Total 156 1034 Output Total 225 1475 Balance -69 -441 Result Diagrams: 11/09/19 04:34 11/09/19 04:34 Hospitalist ROS - Medication Medications: Active Medications Generic Name Dose Route Start Last Admin Trade Name Freq PRN Reason Stop Dose Admin Amoxicillin 500 mg 11/08/19 21:00 11/10/19 21:04 Amoxil PO 11/16/19 21:01 Not Given TID MARIKA Aspirin 300 mg 11/09/19 09:00 11/10/19 08:56 Aspirin [place] 300 mg DAILY MARIKA Administration Atorvastatin Calcium 40 mg 11/08/19 21:00 11/10/19 21:04 Lipitor PO Not Given HS MARIKA Ceftriaxone Sodium 1 gm/ 100 mls @ 200 mls/hr 11/09/19 11:15 11/10/19 10:54 Sodium Chloride IVPB 100 mls Q24HR MARIKA Administration Sodium Chloride 1,000 mls @ 25 mls/hr 11/09/19 23:45 11/11/19 01:37 Normal Saline 0.9% IV 1,000 mls .Q24H MARIKA Administration Labetalol HCl 10 mg 11/09/19 08:42 11/11/19 04:45 Normodyne SLOW IVP 2 ml Q4H PRN Administration Blood Pressure Metoprolol Tartrate 5 mg 11/09/19 11:45 11/11/19 05:52 Lopressor IVP 11/12/19 11:46 5 mg Q6H MARIKA Administration Sodium Chloride 10 ml 11/08/19 16:37 11/09/19 20:41 Flush - Normal Saline IVF 10 ml PRN PRN Administration Saline Flush - Exam Neck: no JVD Heart: no murmur, irregular Respiratory: CTAB Gastrointestinal: soft, non-tender, normal bowel sounds Extremities: no edema Hosp A/P (1) Acute CVA (cerebrovascular accident) Code(s): I63.9 - CEREBRAL INFARCTION, UNSPECIFIED Status: Acute (2) Dyslipidemia Code(s): E78.5 - HYPERLIPIDEMIA, UNSPECIFIED Status: Chronic (3) HTN (hypertension) Code(s): I10 - ESSENTIAL (PRIMARY) HYPERTENSION Status: Chronic Qualifiers: Hypertension type: essential hypertension Qualified Code(s): I10 - Essential (primary) hypertension (4) Acute encephalopathy Code(s): G93.40 - ENCEPHALOPATHY, UNSPECIFIED Status: Acute - Plan discussed with family, requests hospice, will order
[2019-11-11] MEDS: AMOXicillin 250 MG CAP PO SCH ×3 (09:38→21:55)
[2019-11-11] MEDS: Aspirin 300 MG Suppository PR SCH (09:41)
[2019-11-11] MEDS: cefTRIAXone\\ROCEPHIN 1 GM in Sodium Chloride 0.9% 100 ML IVPB SCH (09:41)
--- NOTE | 2019-11-11 14:24 | PDOC.HOSPP ---
- Subjective Encounter Date: 11/11/19 Subjective: NEUROLOGY PROGRESS NOTE Patient somnolent but opens eyes to verbal stimuli. - Objective Vital Signs & Weight: Vital Signs (12 hours) Temp Pulse Pulse Pulse Resp BP BP 11/11/19 12:56 85 11/11/19 12:46 108 H 11/11/19 12:00 99 F 106 H 18 11/11/19 09:57 11/11/19 09:20 97 101 H 193/102 H 151/104 H 11/11/19 09:16 97 101 H 193/122 H 151/104 H 11/11/19 07:56 98.6 F 96 18 11/11/19 03:42 99.1 F 84 20 BP BP Pulse Ox 11/11/19 12:56 140/89 11/11/19 12:46 159/95 H 11/11/19 12:00 157/110 H 94 L 11/11/19 09:57 161/103 H 11/11/19 09:20 11/11/19 09:16 11/11/19 07:56 96 11/11/19 03:42 189/87 H 93 L Weight Admit Weight 190 lb Weight 190 lb 3.2 oz I&O: 11/10/19 11/11/19 11/12/19 06:59 06:59 06:59 Intake Total 156 1034 Output Total 225 1475 Balance -69 -441 Result Diagrams: 11/09/19 04:34 11/09/19 04:34 Radiology Reviewed by me: Yes EKG Reviewed by me: Yes Hospitalist ROS - Review of Systems ROS unobtainable: due to mental status (aphasia) - Medication Medications: Active Medications Generic Name Dose Route Start Last Admin Trade Name Freq PRN Reason Stop Dose Admin Amoxicillin 500 mg 11/08/19 21:00 11/11/19 09:38 Amoxil PO 11/16/19 21:01 Not Given TID MARIKA Aspirin 300 mg 11/09/19 09:00 11/11/19 09:41 Aspirin [place] 300 mg DAILY MARIKA Administration Atorvastatin Calcium 40 mg 11/08/19 21:00 11/10/19 21:04 Lipitor PO Not Given HS MARIKA Ceftriaxone Sodium 1 gm/ 100 mls @ 200 mls/hr 11/09/19 11:15 11/11/19 09:41 Sodium Chloride IVPB 100 mls Q24HR MARIKA Administration Sodium Chloride 1,000 mls @ 25 mls/hr 11/09/19 23:45 11/11/19 01:37 Normal Saline 0.9% IV 1,000 mls .Q24H MARIKA Administration Labetalol HCl 10 mg 11/09/19 08:42 11/11/19 04:45 Normodyne SLOW IVP 2 ml Q4H PRN Administration Blood Pressure Metoprolol Tartrate 5 mg 11/09/19 11:45 11/11/19 12:45 Lopressor IVP 11/12/19 11:46 5 mg Q6H MARIKA Administration Sodium Chloride 10 ml 11/08/19 16:37 11/09/19 20:41 Flush - Normal Saline IVF 10 ml PRN PRN Administration Saline Flush - Exam General Appearance: ill appearing Eye: PERRL ENT: normocephalic atraumatic Neck: supple Heart: irregular Respiratory: CTAB Gastrointestinal: soft Extremities: no cyanosis Skin: normal turgor Neurological: facial droop, hemiplegia, speech deficit Musculoskeletal: no muscle wasting Psychiatric: not oriented, somnolent (aphasia) Hosp A/P (1) Acute CVA (cerebrovascular accident) Code(s): I63.9 - CEREBRAL INFARCTION, UNSPECIFIED Status: Acute (2) Acute encephalopathy Code(s): G93.40 - ENCEPHALOPATHY, UNSPECIFIED Status: Acute (3) Dysphagia Code(s): R13.10 - DYSPHAGIA, UNSPECIFIED Status: Acute Qualifiers: Dysphagia type: unspecified Qualified Code(s): R13.10 - Dysphagia, unspecified (4) Dyslipidemia Code(s): E78.5 - HYPERLIPIDEMIA, UNSPECIFIED Status: Chronic (5) HTN (hypertension) Code(s): I10 - ESSENTIAL (PRIMARY) HYPERTENSION Status: Chronic Qualifiers: Hypertension type: essential hypertension Qualified Code(s): I10 - Essential (primary) hypertension - Plan PT/OT, speech therapy Consults: Hospice 84 year old with acute onset left sided weakness and speech deficits. Acute CVA due to atrial fibrillation. 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 continue rectal aspirin. Neurochecks q 4 hours. Echo completed. Results noted.LVEF 55-60%. No thrombus or PFO. Continue medical management per primary team. Family opted for hospice. Continue supportive measures. Plan discussed during MDR rounds.
--- NOTE | 2019-11-11 15:50 | PDOC.FMACP ---
Advance Care Planning - Problem (1) Palliative care encounter Status: Acute Code(s): Z51.5 - ENCOUNTER FOR PALLIATIVE CARE (2) Acute CVA (cerebrovascular accident) Status: Acute Code(s): I63.9 - CEREBRAL INFARCTION, UNSPECIFIED (3) Acute encephalopathy Status: Acute Code(s): G93.40 - ENCEPHALOPATHY, UNSPECIFIED - Note Participants: family, palliative care Summary: Advanced Care Planning was discussed with patient family by palliative care. The diagnosis, prognosis and goals of care were discussed. Appropriate forms and documentation to accomplish the goals of care were discussed. All questions were answered. Family has confirmed DNAR status and is electing to transition to Hospice care. 11/12/2019 MPOA to come meet with Palliative Care to complete OOHDNAR. The Palliative Care Team will continue to assist with completion of any outstanding forms as identified. Time Spent (mins): 20
[2019-11-11] MEDS: Atorvastatin Calcium 40 MG TAB PO SCH (21:55)
[2019-11-11] MEDS ORDERED: Ketorolac Tromethamine 30 MG/ML VIAL IVP SCH (22:15)
[2019-11-12] MEDS: Metoprolol Tartrate 5 MG/5 ML VIAL IVP SCH ×2 (05:52→14:03)
[2019-11-12 07:31] VITALS: BP 188/132; TEMP 98.8
[2019-11-12] MEDS: Aspirin 300 MG Suppository PR SCH (08:15)
[2019-11-12] MEDS: AMOXicillin 250 MG CAP PO SCH (08:21)
[2019-11-12] MEDS ORDERED: hydrALAZINE 20 MG/ML VIAL SLOW IVP PRN ×2 (08:30)
--- NOTE | 2019-11-12 08:37 | PDOC.HOSPP ---
- Subjective Encounter Date: 11/12/19 Encounter Time: 08:31 - Objective Vital Signs & Weight: Vital Signs (12 hours) Temp Pulse Resp BP BP Pulse Ox 11/12/19 07:25 98.8 F 103 H 20 188/132 H 93 L 11/11/19 21:48 99.3 F 116 H 14 186/116 H 93 L Weight Admit Weight 190 lb Weight 190 lb 3.2 oz I&O: 11/11/19 11/12/19 11/13/19 06:59 06:59 06:59 Intake Total 1034 Output Total 1475 333 225 Balance -441 -333 -225 Result Diagrams: 11/09/19 04:34 11/09/19 04:34 Hospitalist ROS - Medication Medications: Active Medications Generic Name Dose Route Start Last Admin Trade Name Freq PRN Reason Stop Dose Admin Amoxicillin 500 mg 11/08/19 21:00 11/12/19 08:21 Amoxil PO 11/16/19 21:01 Not Given TID MARIKA Aspirin 300 mg 11/09/19 09:00 11/12/19 08:15 Aspirin [place] 300 mg DAILY MARIKA Administration Atorvastatin Calcium 40 mg 11/08/19 21:00 11/11/19 21:55 Lipitor PO Not Given HS MARIKA Ceftriaxone Sodium 1 gm/ 100 mls @ 200 mls/hr 11/09/19 11:15 11/11/19 09:41 Sodium Chloride IVPB 100 mls Q24HR MARIKA Administration Sodium Chloride 1,000 mls @ 25 mls/hr 11/09/19 23:45 11/11/19 01:37 Normal Saline 0.9% IV 1,000 mls .Q24H MARIKA Administration Labetalol HCl 10 mg 11/09/19 08:42 11/11/19 04:45 Normodyne SLOW IVP 2 ml Q4H PRN Administration Blood Pressure Metoprolol Tartrate 5 mg 11/09/19 11:45 11/12/19 05:52 Lopressor IVP 11/12/19 11:46 5 mg Q6H MARIKA Administration Sodium Chloride 10 ml 11/08/19 16:37 11/12/19 05:54 Flush - Normal Saline IVF 10 ml PRN PRN Administration Saline Flush Hosp A/P (1) Acute CVA (cerebrovascular accident) Code(s): I63.9 - CEREBRAL INFARCTION, UNSPECIFIED Status: Acute (2) Dyslipidemia Code(s): E78.5 - HYPERLIPIDEMIA, UNSPECIFIED Status: Chronic (3) HTN (hypertension) Code(s): I10 - ESSENTIAL (PRIMARY) HYPERTENSION Status: Chronic Qualifiers: Hypertension type: essential hypertension Qualified Code(s): I10 - Essential (primary) hypertension (4) Acute encephalopathy Code(s): G93.40 - ENCEPHALOPATHY, UNSPECIFIED Status: Acute - Plan discussed with family, requests hospice, will order
[2019-11-12] MEDS ORDERED: cloNIDine 0.2mg/24 Hour PATCH TD SCH (09:00)
[2019-11-12] MEDS: cefTRIAXone\\ROCEPHIN 1 GM in Sodium Chloride 0.9% 100 ML IVPB SCH (11:25)
--- NOTE | 2019-11-12 12:27 | PDOC.HOSPP ---
- Subjective Encounter Date: 11/12/19 Subjective: NEUROLOGY PROGRESS NOTE Patient somnolent but opens eyes to verbal stimuli. She has receptive aphasia. - Objective Vital Signs & Weight: Vital Signs (12 hours) Temp Pulse Resp BP Pulse Ox 11/12/19 07:25 98.8 F 103 H 20 188/132 H 93 L Weight Admit Weight 190 lb Weight 190 lb 3.2 oz I&O: 11/11/19 11/12/19 11/13/19 06:59 06:59 06:59 Intake Total 1034 Output Total 1475 333 225 Balance -441 -333 -225 Result Diagrams: 11/09/19 04:34 11/09/19 04:34 Radiology Reviewed by me: Yes EKG Reviewed by me: Yes Hospitalist ROS - Review of Systems ROS unobtainable: due to mental status - Medication Medications: Active Medications Generic Name Dose Route Start Last Admin Trade Name Freq PRN Reason Stop Dose Admin Amoxicillin 500 mg 11/08/19 21:00 11/12/19 08:21 Amoxil PO 11/16/19 21:01 Not Given TID MARIKA Aspirin 300 mg 11/09/19 09:00 11/12/19 08:15 Aspirin [place] 300 mg DAILY MARIKA Administration Atorvastatin Calcium 40 mg 11/08/19 21:00 11/11/19 21:55 Lipitor PO Not Given HS MARIKA Clonidine 0.2 mg 11/12/19 09:00 11/12/19 10:12 Ctkccpyt-Dhg-2 TD 0.2 mg Q7DAYS MARIKA Administration Ceftriaxone Sodium 1 gm/ 100 mls @ 200 mls/hr 11/09/19 11:15 11/12/19 11:25 Sodium Chloride IVPB 100 mls Q24HR MARIKA Administration Sodium Chloride 1,000 mls @ 25 mls/hr 11/09/19 23:45 11/11/19 01:37 Normal Saline 0.9% IV 1,000 mls .Q24H MARIKA Administration Labetalol HCl 10 mg 11/09/19 08:42 11/11/19 04:45 Normodyne SLOW IVP 2 ml Q4H PRN Administration Blood Pressure Sodium Chloride 10 ml 11/08/19 16:37 11/12/19 05:54 Flush - Normal Saline IVF 10 ml PRN PRN Administration Saline Flush - Exam General Appearance: ill appearing Eye: PERRL ENT: normocephalic atraumatic Neck: supple Heart: RRR Respiratory: CTAB Gastrointestinal: soft Extremities: no cyanosis Skin: normal turgor Neurological: no new deficit, facial droop, hemiplegia, speech deficit Neurological - other findings: left hemiplegia Musculoskeletal: no muscle wasting Psychiatric: not oriented Hosp A/P (1) Acute CVA (cerebrovascular accident) Code(s): I63.9 - CEREBRAL INFARCTION, UNSPECIFIED Status: Acute (2) Acute encephalopathy Code(s): G93.40 - ENCEPHALOPATHY, UNSPECIFIED Status: Acute (3) Dysphagia Code(s): R13.10 - DYSPHAGIA, UNSPECIFIED Status: Acute Qualifiers: Dysphagia type: unspecified Qualified Code(s): R13.10 - Dysphagia, unspecified (4) Dyslipidemia Code(s): E78.5 - HYPERLIPIDEMIA, UNSPECIFIED Status: Chronic (5) HTN (hypertension) Code(s): I10 - ESSENTIAL (PRIMARY) HYPERTENSION Status: Chronic Qualifiers: Hypertension type: essential hypertension Qualified Code(s): I10 - Essential (primary) hypertension - Plan plan discussed w/ family, PT/OT, DVT proph w/SCDs 84 year old with acute onset left sided weakness and speech deficits. Acute CVA due to atrial fibrillation. Significant deficits. Family opted for hospice. Son at bedside. 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 Continue rectal aspirin. Neurochecks q 4 hours. Echo completed. Results noted.LVEF 55-60%. No thrombus or PFO. Continue medical management per primary team. Family opted for hospice. Continue supportive measures. Plan discussed during MDR rounds and also with the son at bedside
[2019-11-12] MEDS: Sodium Chloride 0.9% 1,000 ML IV SCH (14:02)
--- NOTE | 2019-11-12 18:03 | DIS ---
DATE OF ADMISSION: 11/08/2019 DATE OF DISCHARGE: 11/12/2019 PRIMARY CARE PHYSICIAN: Unknown. DISPOSITION: Discharged to home hospice. DISCHARGE DIAGNOSES: Acute CVA, dyslipidemia, hypertension, acute encephalopathy, left humeral neck fracture, dyslipidemia, paroxysmal atrial fibrillation. DISCHARGE MEDICATIONS: None. ALLERGIES: NONE. CODE STATUS: DNAR on hospice. DIET: N.p.o. HOSPITAL COURSE: The patient admitted to the Hospitalist Service through the emergency room with altered mental status, left hemiparesis, placed in the hospital for stroke workup. Brain MRI, large right middle cerebral artery infarct. Laboratory; initial CBC was unremarkable. PT/INR was 1.2. Comprehensive metabolic profile; sodium 138, potassium 5.5, chloride 107, CO2 of 19, creatinine 0.91, blood sugar 145. Liver function tests normal. COVID was negative. She was seen in consultation by Dr. Shahzad Hines, Neurology. It is thought that she needed a feeding tube, etc. She remained unresponsive. They elected DNAR status and transitioned to hospice care. She was discharged this morning on hospice care in discussions with the family. They asked me how long to expect her to live without fluid intake and I said my guess would be 7 to 14 days. They were all sad, but accepting the situation. At hospice, she will be followed by Dr. Russell. Job ID: [id number] [facility]
--- NOTE | 2019-11-14 05:55 | PQF ---
Dear : Vernon Gunn Date : 11/14/19 Please exercise your independent, professional judgment in responding to the clarification form. Clinical indicators are provided on the bottom of this form for your review Can you please further clarify the specificity of Acute encephalopathy? Please check appropriate box(es): [ ] Acute Metabolic Encephalopathy [ x ] Acute Toxic Encephalopathy [ ] Acute hypertensive Encephalopathy [ ] Other diagnosis please specify [ ] Unable to determine Physician Signature: Date/Time: For continuity of documentation, please document condition throughout progress notes and discharge summary. Thank You. To be completed by CDI/Coding staff for physician review: Present Clinical Indicators - Signs / Symptoms / Labs Results and Location in Medical Record [ x ] Altered mentation and hemiparesis H and P pg.1 [ x ] Her BP is 168/92 H and P pg.2 [ x ] She would not open her eyes to verbal stimulation Consult 11/08 pg.1 [ x ] Acute encephalopathy Hospitalist PN pg.4 [ x ] Obtunded/ encephalopathic due to large CVA Hospitalist PN pg.4 [ x ] She remained unresponsive DS pg.1 [ x ] GCS: eye 3 speech 4 Motor 5 ED Notes 11/07 [ x ] NIHSS=11 ED Notes 11/07 Present Risk Factors Results and Location in Medical Record [ x ] CAD H and P pg.1 [ x ] HTN H and P pg.1 [ x ] HLD H and P pg.1 [ x ] Atrial fibrillation H and P pg.1 [ x ] 84 years old H and P pg.1 [ x ] Right MCA stroke Consult 11/08 pg.1 Present Treatments Results and Location in Medical Record [ x ] Neuro checks / neurology consult Consult 11/08 [ x ] Brain MRI Collected 11/08 [ x ] CT Brain Collected 11/07 [ x ] IV Fluids JUN 14 [ x ] Vancomycin 1.25gm IV JUN 14 [ x ] Cefepime 2gm IV JUN 14 [ x ] Hydralazine 10mg IV q4h PRN JUN 14 [ x ] Ilabetalol Hcl 10mg IV Q4H PRN JUN 14 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
--- NOTE | 2019-11-14 12:31 | PQF ---
Q1 2018 [facility] Updated: 12/2018 CLINICAL DOCUMENTATION CLARIFICATION FORM: Dear Dr. Vernon Gunn Date / Time: 11-14-19 Please exercise your independent, professional judgment in responding to the clarification form. Clinical indicators are provided on the bottom of this form for your review. Please check appropriate box(es): [ ] Demand Ischemia [ ] Insignificant Labs [ ] Other diagnosis [ ] Unable to determine In addition, please specify: Present on Admission (POA): [ ] Yes [ ] No [ ] Unable to determine For continuity of documentation, please document condition throughout progress notes and discharge summary. Thank You. To be completed by CDI/Coding staff for physician review: CLINICAL INDICATORS - SIGNS / SYMPTOMS/ LABS are present in the medical record TROPONIN: 11-08-19: 0.057 0.119 0.146 ER NOTES 11-08-19: HX A FIB, HTN RISK FACTORS /Results and location in MR ER NOTES 11-08-19: HX A FIB, HTN D/C SUMMARY 11-12-19: ACUTE CVA, DYSLIPIDEMIA, HTN, ACUTE ENCEPHALOPATHY, L HUMERAL NECK FX, PAROXYSMAL A FIB TREATMENT /Results and location in MR: SERIES OF TROPONIN 11-08-19 ER NOTES 11-08-19: CEFEPIME IV, VANCOMYCIN IV, NS IVF CDS Signature: Julissa Tinoco Phone #: Date: 11-14-19 This is a permanent part of the Medical Record [facility]
== END 2019-11-12 14:57 | disposition hospice, home (50) | DRG 64 ==
LOC: ERS 14:02 → 2SE 17:13
PROVIDERS: ADMIT Internal Medicine; ATTEND Internal Medicine
DX: I63.511 Cerebral infarction due to unspecified occlusion or stenosis of right middle cerebral artery (principal); G92 Toxic encephalopathy; G81.94 Hemiplegia, unspecified affecting left nondominant side; S42.302A Unspecified fracture of shaft of humerus, left arm, initial encounter for closed fracture; Z51.5 Encounter for palliative care; Z66 Do not resuscitate; Z20.828 Contact with and (suspected) exposure to other viral communicable diseases; E78.5 Hyperlipidemia, unspecified; I25.10 Atherosclerotic heart disease of native coronary artery without angina pectoris; I97.2 Postmastectomy lymphedema syndrome; M81.0 Age-related osteoporosis without current pathological fracture; R13.10 Dysphagia, unspecified; I48.0 Paroxysmal atrial fibrillation; R29.711 NIHSS score 11; R40.2132 Coma scale, eyes open, to sound, at arrival to emergency department; R40.2242 Coma scale, best verbal response, confused conversation, at arrival to emergency department; R40.2352 Coma scale, best motor response, localizes pain, at arrival to emergency department; I10 Essential (primary) hypertension; R29.810 Facial weakness; R47.01 Aphasia; W19.XXXA Unspecified fall, initial encounter; Z79.82 Long term (current) use of aspirin; Z79.01 Long term (current) use of anticoagulants; Z79.899 Other long term (current) drug therapy; Z85.3 Personal history of malignant neoplasm of breast
CPT/HCPCS: 36415; 36416; 51702; 70450; 70496; 70498; 70553; 71045; 72125; 80048; 80053; 80061; 81003; 82550; 82553; 83036; 83605; 84443; 84484; 85025; 85610; 87040; 87086; 87635; 90471; 90670; 93005; 93306; 96361; 96365; 96366; 96367; 96375; 96376; A9579; G0009; J0692; J0696; J1885; J3010; J3370; J3490; J7050; Q9967; U0003